=== PATIENT | female | born 1990 | race Caucasian/White ===

== ENCOUNTER → 2022-11-06 | Outpatient (CLI) | payer BC ==
[~2022-11-06] MED LIST: CEPH500C PO; DOCU100C37 PO; IBUP-1780 PO; OXYC-556 PO; PREN1TAB19 PO; PRM25T PO; TRAM50TA2 PO
--- NOTE | 2022-11-06 16:52 | Diagnostic Imaging Report ---
INDICATION: Routine care. TECHNIQUE: Multiple real-time grayscale images were obtained over the gravid uterus. COMPARISON: None FINDINGS: There is a single live intrauterine gestation in cephalic presentation. The cervix measures 4.4 cm. There is no funneling or endocervical fluid. The placenta is anterior without evidence of previa, at least 6.1 cm from the internal os. The heart rate measures 155 BPM. The amniotic fluid appears grossly normal in volume. A vertical pocket measuring 3.4 cm is seen. The left ventricular outflow tract is seen. The right ventricular outflow tract is seen. The upper and lower spine are seen. The kidneys are seen. The bladder is seen. There are 2 umbilical arteries demonstrating a three-vessel cord. Cord insertion is seen. The stomach is seen. The lateral ventricle is seen. The cerebellum and cisterna magna are seen. The diaphragm is seen. A four-chamber heart is seen. Biometrical measurements are as follows: Biparietal 4.53 cm, age 19 weeks 5 days. Head circumference 17.23 cm, age 19 weeks 6 days. Abdominal circumference 13.50 cm, age 19 weeks 0 days. Femur length 3.13 cm, age 19 weeks 6 days. Sonographic estimate age: 19 weeks 5 days. Sonographic estimated date of delivery: 03/28/2023. Estimated Weight: 289 gm (+/- 42 gm). LMP percentile: 96%. heart rate: 155 beats per minute. number: 1 of 1. IMPRESSION: 1. Single live intrauterine gestation measuring at 19 weeks and 5 days which is within range of the clinical dates. 2. No abnormality seen on anatomic survey. Dictated by: Dictated on workstation # [id number]
== END ==
LOC: RAD 10:18
PROVIDERS: ATTEND Obstetrics & Gynecology
DX: Z34.82 Encounter for supervision of other normal pregnancy, second trimester (principal); Z3A.19 19 weeks gestation of pregnancy
CPT/HCPCS: 76805